=== PATIENT | female | born 1980 | race Two or more races ===

== ENCOUNTER 2018-02-04 16:48 | Emergency (ER) | payer MEDICAID ==
[~2018-02-04] VITALS: Ht 152.4 cm; Wt 68.5 kg
[~2018-02-04 16:48] MED LIST: PRENTAB28 PO
[2018-02-04 16:54] VITALS: BP 131/77
[2018-02-04] MEDS ORDERED: EPINEPHrine HCL 1 MG/1 ML AMP SC ONE (17:30)
[2018-02-04] MEDS ORDERED: diphenhdrAMINE HCL 50 MG/1 ML VL IM ONE (17:30)
== END 2018-02-04 18:07 | disposition home or self-care (01) ==
LOC: ER 16:50
DX: L27.2 Dermatitis due to ingested food (principal); Z88.0 Allergy status to penicillin
CPT/HCPCS: 96372; 99284; J0171; J1200